=== PATIENT | male | born 1965 | race Caucasian/White ===

== ENCOUNTER 2021-03-03 09:43 | Day surgery (SDC) | payer OTHER ==
[~2021-03-03] VITALS: Ht 172.7 cm; Wt 136.2 kg
[~2021-03-03 09:43] MED LIST: ALBU8HFA2; ANORO ELLIPTA1 EACH; ASPIR 8181 M1 PO; ATOR10; Amitriptyline H10 MG; FLUT1DIS5; Flonase 0.05% N16 GM; GABA100; HYDACE5 PO; HYDR10 PO; HYDR100; LISI20 PO; Lopressor 25 mg25 MG PO; MECL25 PO; METO25 PO; OMEP20ER; PRED20 PO; TIZA4; ZEBUTAL 50-3251 EAC1 PO
[2021-03-03] MEDS ORDERED: FURO20 (10:15)
--- NOTE | 2021-03-03 10:29 | NUR ---
03/03/21 1029 Megha Juarez FIRST ATTEMPT MISSED BY RN IN THE RIGHT WRIST. SECOND ATTEMP SUCCESSFUL IN THE RAC. PT TOW.
== END 2021-03-03 12:16 | disposition home or self-care (01) ==
LOC: ORSCSDS 09:43
PROVIDERS: Student in an Organized Health Care Education/Training Program
PROC: 0DBK8ZX Excision of Ascending Colon, Via Natural or Artificial Opening Endoscopic, Diagnostic (ICD-10-PCS; principal; 2021-03-03 11:00)
PROC: 0DBN8ZX Excision of Sigmoid Colon, Via Natural or Artificial Opening Endoscopic, Diagnostic (ICD-10-PCS; principal; 2021-03-03 11:00)
DX: Z12.11 Encounter for screening for malignant neoplasm of colon (principal); D12.2 Benign neoplasm of ascending colon; D12.5 Benign neoplasm of sigmoid colon; K57.30 Diverticulosis of large intestine without perforation or abscess without bleeding; I10 Essential (primary) hypertension; G47.33 Obstructive sleep apnea (adult) (pediatric); J44.9 Chronic obstructive pulmonary disease, unspecified; Z87.891 Personal history of nicotine dependence; K21.9 Gastro-esophageal reflux disease without esophagitis; Z86.73 Personal history of transient ischemic attack (TIA), and cerebral infarction without residual deficits; E66.01 Morbid (severe) obesity due to excess calories; Z68.42 Body mass index [BMI] 45.0-49.9, adult; Z79.899 Other long term (current) drug therapy
CPT/HCPCS: 88305; J0330; J0461; J2405; J2704; J7120

== ENCOUNTER 2021-05-25 14:54 | Inpatient (IN) | payer OTHER ==
[~2021-05-25] VITALS: Ht 172.7 cm; Wt 124.7 kg
[~2021-05-25 14:54] MED LIST changes: +FURO20
[2021-05-25 15:29] LABS: BASOPHILS ABSOLUTE AUTO 0.09 K/mm3 (0.00-0.23); BASOPHILS PERCENT AUTO 1 % (0-2); EOSINOPHILS ABSOLUTE AUTO 0.19 K/mm3 (0.00-0.68); EOSINOPHILS PERCENT AUTO 2 % (0-6); Hematocrit 34.2 % (37.0-53.0); Hemoglobin 11.7 g/dL (13.5-17.5); IMMATURE GRAN ABSOLUTE AUTO 0.06 K/mm3 (0.00-0.10); IMMATURE GRAN PERCENT AUTO 1 % (0-1); LYMPHOCYTES PERCENT AUTO 11 % (21-46); MONOCYTES ABSOLUTE AUTO 0.78 K/mm3 (0.16-1.47); MONOCYTES PERCENT AUTO 7 % (4-13); Mean Corpuscular HGB 31.6 pg (26.0-34.0); Mean Corpuscular HGB Conc 34.2 g/dL (31.5-36.5); Mean Corpuscular Volume 92 fL (80-100); Mean Platelet Volume 10.1 fL (9.1-12.4); NEUTROPHILS ABSOLUTE AUTO 8.44 K/mm3 (1.96-9.15); NEUTROPHILS PERCENT AUTO 78 % (41-73); Platelet Count 350 K/mm3 (150-400); RDW Coefficient Variation 12.7 % (11.7-14.2); RDW Standard Deviation 43.3 fL (35.1-46.3); White Blood Cell Count 10.76 K/mm3 (4.00-11.30)
[2021-05-25 15:51] LABS: Ethanol (Alcohol), Blood, Med <3 mg/dL; Troponin I <0.015 ng/mL (0.000-0.040)
[2021-05-25 15:57] LABS: Alanine Aminotransfer (ALT/SGP 50 U/L (12-78); Albumin, Blood 3.6 g/dL (3.4-5.0); Alk Phos 89 U/L (50-136); Anion Gap 11 mmol/L (6-16); Aspartate Aminotrans (AST/SGOT 23 U/L (12-37); Bilirubin, Total 0.3 mg/dL (0.1-1.0); Blood Urea Nitrogen 40 mg/dL (8-24); Bun/Creatinine Ratio 13.1 (12.0-20.0); CO2, Blood 20 mmol/L (21-32); Calcium, Blood 8.4 mg/dL (8.5-10.1); Chloride, Blood 95 mmol/L (98-108); Creatinine, Blood 3.06 mg/dL (0.60-1.20); Globulin, Blood 3.7 g/dL (2.2-4.0); Glomerular Filtration Rate 21 (60-); Glucose, Blood 634 mg/dL (70-99); Potassium, Blood 5.4 mmol/L (3.5-5.5); Sodium, Blood 126 mmol/L (136-145); Total Protein, Blood 7.3 g/dL (6.4-8.2)
[2021-05-25 17:08] LABS: SARS-Cov-2 (COVID-19) PCR, MMC NEGATIVE (NEGATIVE)
[2021-05-25 20:29] LABS: Bun/Creatinine Ratio 13.4 (12.0-20.0); Calcium, Blood 8.1 mg/dL (8.5-10.1); Creatinine, Blood 2.69 mg/dL (0.60-1.20); Potassium, Blood 5.1 mmol/L (3.5-5.5)
[2021-05-25 20:30] LABS: U Amphetamine Screen Not Detected; U Barbituate Screen Not Detected; U Benzodiazapine Screen Not Detected; U Buprenorphine Screen Not Detected; U Cannabinoids Screen Not Detected; U Cocaine Screen Not Detected; U Methadone Screen Not Detected; U Methamphetamine Screen Not Detected; U Opiates Screen Not Detected; U Oxycodone Screen Not Detected; U Phencyclidine Screen Not Detected; U Propoxyphene Screen Not Detected
[2021-05-26 05:47] LABS: BASOPHILS ABSOLUTE AUTO 0.08 K/mm3 (0.00-0.23); BASOPHILS PERCENT AUTO 1 % (0-2); EOSINOPHILS PERCENT AUTO 5 % (0-6); Hematocrit 33.4 % (37.0-53.0); IMMATURE GRAN ABSOLUTE AUTO 0.03 K/mm3 (0.00-0.10); IMMATURE GRAN PERCENT AUTO 0 % (0-1); LYMPHOCYTES ABSOLUTE AUTO 1.45 K/mm3 (0.84-5.20); LYMPHOCYTES PERCENT AUTO 20 % (21-46); MONOCYTES ABSOLUTE AUTO 0.54 K/mm3 (0.16-1.47); MONOCYTES PERCENT AUTO 7 % (4-13); Mean Corpuscular HGB 31.2 pg (26.0-34.0); Mean Corpuscular HGB Conc 32.9 g/dL (31.5-36.5); Mean Corpuscular Volume 95 fL (80-100); Mean Platelet Volume 9.4 fL (9.1-12.4); NEUTROPHILS ABSOLUTE AUTO 4.95 K/mm3 (1.96-9.15); NEUTROPHILS PERCENT AUTO 66 % (41-73); Platelet Count 258 K/mm3 (150-400); RDW Coefficient Variation 12.8 % (11.7-14.2); RDW Standard Deviation 44.5 fL (35.1-46.3); Red Blood Cell Count 3.53 M/mm3 (4.30-5.90); White Blood Cell Count 7.45 K/mm3 (4.00-11.30)
[2021-05-26 06:07] LABS: Bun/Creatinine Ratio 13.5 (12.0-20.0); Creatinine, Blood 2.22 mg/dL (0.60-1.20); Potassium, Blood 4.7 mmol/L (3.5-5.5)
--- NOTE | 2021-05-26 07:50 | NUR ---
SHIFT SUMMARY ADMITTED LAST NIGHT FOR HYPERGLYCEMIA & ARF. VSS. REPORTS CHRONIC NEUROPATHY WHOLE R SIDE OF BODY. AOX4. Q4 CBG, LAST CBG CHECK @257. DENIES N/V. REPORTS HE NO LONGER FEELS LIGHTHEADED. CALL LIGHT IN REACH.
--- NOTE | 2021-05-26 12:26 | NUR ---
PT HAS BEEN QUITE PLEASANT TODAY. STATES RT SIDE NEUROPATHY SINCE STROKE LAST YEAR. NORMAL FOR HIM. H/R RG, NO MURMER NOTED. NO TELE, NO PACER. LUNGS CLEAR, RESP EASY, UNLABORED. ON R/A. BT X4 VOIDS URINAL OR SBA TO BATHROOM. BED IN LOW POSITION, ALL LITE IN REACH, CALLS APPROP
[2021-05-27 05:53] LABS: BASOPHILS ABSOLUTE AUTO 0.05 K/mm3 (0.00-0.23); BASOPHILS PERCENT AUTO 1 % (0-2); EOSINOPHILS ABSOLUTE AUTO 0.34 K/mm3 (0.00-0.68); EOSINOPHILS PERCENT AUTO 6 % (0-6); Hematocrit 34.5 % (37.0-53.0); Hemoglobin 11.4 g/dL (13.5-17.5); IMMATURE GRAN ABSOLUTE AUTO 0.03 K/mm3 (0.00-0.10); IMMATURE GRAN PERCENT AUTO 1 % (0-1); LYMPHOCYTES ABSOLUTE AUTO 1.27 K/mm3 (0.84-5.20); LYMPHOCYTES PERCENT AUTO 22 % (21-46); MONOCYTES ABSOLUTE AUTO 0.38 K/mm3 (0.16-1.47); MONOCYTES PERCENT AUTO 7 % (4-13); Mean Corpuscular HGB 31.6 pg (26.0-34.0); Mean Corpuscular Volume 96 fL (80-100); Mean Platelet Volume 9.6 fL (9.1-12.4); NEUTROPHILS PERCENT AUTO 64 % (41-73); Platelet Count 272 K/mm3 (150-400); RDW Coefficient Variation 12.6 % (11.7-14.2); RDW Standard Deviation 44.3 fL (35.1-46.3); Red Blood Cell Count 3.61 M/mm3 (4.30-5.90); White Blood Cell Count 5.67 K/mm3 (4.00-11.30)
[2021-05-27 06:24] LABS: Anion Gap 6 mmol/L (6-16); Blood Urea Nitrogen 23 mg/dL (8-24); Bun/Creatinine Ratio 14.1 (12.0-20.0); CHOL/HDL RATIO 7.1; CO2, Blood 22 mmol/L (21-32); Calcium, Blood 8.7 mg/dL (8.5-10.1); Chloride, Blood 108 mmol/L (98-108); Cholesterol 199 mg/dL (50-200); Creatinine, Blood 1.63 mg/dL (0.60-1.20); Glomerular Filtration Rate 44 (60-); Glucose, Blood 188 mg/dL (70-99); HDL Cholesterol 28 mg/dL (>39); LDL/HDL RATIO Unable to Calculate; Low Density Lipoprotein Chol Unable to Calculate mg/dL (0-110); Sodium, Blood 136 mmol/L (136-145); Triglycerides 462 mg/dL (30-160); Very Low Density Lipoprot Chol Unable to Calculate mg/dL (6-32)
--- NOTE | 2021-05-27 06:30 | NUR ---
SHIFT SUMMARY NO ACUTE CHANGES THIS SHIFT. AOX4. VSS. DENIES PAIN, N/V OR SOB. PT UP MULTIPLE TIMES TO VOID. GAVE DIABETIC EDUCATION INFO. CALL LIGHT IN REACH.
[2021-05-27] MEDS ORDERED: DOCU100 PO (13:45)
[2021-05-27] MEDS ORDERED: INSULANPEN SC (13:46)
--- NOTE | 2021-05-27 15:18 | NUR ---
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
== END 2021-05-27 15:47 | disposition home or self-care (01) | DRG 683 ==
LOC: ER 14:54 → ERHOLD 17:09 → MEDS 22:44
PROVIDERS: Emergency Medicine Emergency Medical Services; Family Medicine; ADMIT Hospitalist
DX: N17.9 Acute kidney failure, unspecified (principal); E87.1 Hypo-osmolality and hyponatremia; E87.2 Acidosis; Z68.41 Body mass index [BMI] 40.0-44.9, adult; Z20.822 Contact with and (suspected) exposure to COVID-19; Z66 Do not resuscitate; I10 Essential (primary) hypertension; E11.65 Type 2 diabetes mellitus with hyperglycemia; E66.9 Obesity, unspecified; I95.9 Hypotension, unspecified; D64.9 Anemia, unspecified; E86.1 Hypovolemia; K64.4 Residual hemorrhoidal skin tags; G47.33 Obstructive sleep apnea (adult) (pediatric); L40.9 Psoriasis, unspecified; Z88.0 Allergy status to penicillin; Z99.89 Dependence on other enabling machines and devices
CPT/HCPCS: 36415; 71045; 80048; 80053; 80061; 82947; 83036; 83880; 84484; 85025; 93005; 93010; 94640; 94664; 94760; 94762; 96360; 96361; 99284-25; A9270; G0480; J1644; J1815; J7030; U0004

== ENCOUNTER 2021-10-19 06:49 | Day surgery (SDC) | payer OTHER ==
[~2021-10-19] VITALS: Ht 172.7 cm; Wt 128.0 kg
[~2021-10-19 06:49] MED LIST changes: +Benadryl25 MG; +DOCU100 PO; +INSULANPEN SC; +MELATONIN5 M1
--- NOTE | 2021-10-19 11:55 | NUR ---
PT HAS BEEN UP TO BATHROOM AND GROIN SITE STABLE.
--- NOTE | 2021-10-19 11:56 | NUR ---
DISCHARGE INSTRUCTIONS GONE OVER WITH PT, VERBALIZES UNDERSTANDING OF INSTRUCTIONS.
--- NOTE | 2021-10-19 12:36 | NUR ---
PT UP AND DRESSED, GROIN SITE STABLE.
--- NOTE | 2021-10-19 13:00 | NUR ---
PT HAS BEEN UP AND WALKING AROUND, GROIN SITE REMAINS STABLE. PT TO PRIVATE VEHICLE PER W/C WITH ONE STAFF.
== END 2021-10-19 13:00 | disposition home or self-care (01) ==
LOC: MHTC 06:49
DX: I25.119 Atherosclerotic heart disease of native coronary artery with unspecified angina pectoris (principal); R94.39 Abnormal result of other cardiovascular function study; R06.02 Shortness of breath; I10 Essential (primary) hypertension; I65.29 Occlusion and stenosis of unspecified carotid artery; E78.5 Hyperlipidemia, unspecified; B35.1 Tinea unguium; E11.9 Type 2 diabetes mellitus without complications; Z79.4 Long term (current) use of insulin; Z88.0 Allergy status to penicillin; Z88.1 Allergy status to other antibiotic agents; E66.01 Morbid (severe) obesity due to excess calories; Z68.41 Body mass index [BMI] 40.0-44.9, adult; J44.9 Chronic obstructive pulmonary disease, unspecified; Z87.891 Personal history of nicotine dependence
CPT/HCPCS: 76937; 93454; 99152; 99153; A9270; C1760; C1769; C1894; J1644; J2250; J3010; J7030; J7050; Q9967

== ENCOUNTER → 2022-07-01 | Outpatient (CLI) | payer OTHER ==
[2022-07-05 12:44] LABS: Stool Occult Bld Immuno 1 Negative (NEGATIVE)
== END | disposition home or self-care (01) ==
LOC: LAB SHORT 09:10 → LAB 09:10
PROVIDERS: Nurse Practitioner Family
DX: Z12.11 Encounter for screening for malignant neoplasm of colon (principal)
CPT/HCPCS: G0328

== ENCOUNTER 2023-02-05 19:04 | Emergency (ER) | payer OTHER ==
[~2023-02-05] VITALS: Ht 172.7 cm; Wt 136.1 kg
[2023-02-05 19:57] VITALS: BP 122/81
== END 2023-02-05 21:01 | disposition home or self-care (01) ==
LOC: ER 19:04
DX: K08.89 Other specified disorders of teeth and supporting structures (principal); Z88.2 Allergy status to sulfonamides; Z88.0 Allergy status to penicillin; Z79.82 Long term (current) use of aspirin
CPT/HCPCS: 64400; 99282-25

== ENCOUNTER → 2023-08-20 | Outpatient (CLI) | payer OTHER ==
[2023-08-24 11:58] LABS: Stool Occult Bld Immuno 1 Negative (NEGATIVE)
== END | disposition home or self-care (01) ==
LOC: LAB SHORT 12:00 → LAB 12:00
PROVIDERS: Family Medicine
DX: Z23 Encounter for immunization (principal)
CPT/HCPCS: G0328